=== PATIENT | male | born 1995 | race Caucasian/White ===

== ENCOUNTER 2018-03-15 23:32 | Emergency (ER) | payer SELFPAY ==
[2018-03-15 23:33] VITALS: BP 146/89
[2018-03-15] MEDS ORDERED: ALBUTEROL/IPRATROPIUM 2.5MG/0.5MG, 3 ML ONE (23:41)
[2018-03-16] MEDS ORDERED: ALBUTEROL/IPRATROPIUM 2.5MG/0.5MG, 3 ML NEB ONE
== END 2018-03-16 00:47 | disposition home or self-care (01) ==
LOC: ED 03-16 00:21
DX: J30.2 Other seasonal allergic rhinitis (principal); R05 Cough
CPT/HCPCS: 71045; 94640; 99283; J7620

== ENCOUNTER 2019-09-30 23:09 | Emergency (ER) | payer OTHER ==
[~2019-09-30] VITALS: Ht 190.5 cm; Wt 135.5 kg
--- NOTE | 2019-10-01 | NUR ---
THIS IS A 24 YO MALE COMING IN FOR "MY CHEST FEELS TIGHT TODAY" X TODAY. DENIES COUGH. HX OF ASTHMA. DENIES CHEST PAIN/RECENT TRAVEL. PATIENT STATES INCREASED WORK OF BREATHING, LUNG SOUNDS ARE DIMINISHED THROUGHOUT, NO WHEEZES AUSCULTATED. PATIENT SPEAKING IN FULL SENTENCES, EVEN AND UNLABORED RESPIRATIONS, SPO2 AT 97% ON RA. ALL MONITORING IN PLACE, SINUS RHYTHM ON MONITOR. CALL LIGHT IN REACH. XRAY TO ROOM
[2019-10-01 00:49] VITALS: BP 133/67
--- NOTE | 2019-10-01 01:18 | NUR ---
Break RN: re-evaluation done. patient disvcharged with instruction. verbalized understanding.
== END 2019-10-01 01:19 | disposition home or self-care (01) ==
LOC: ED 10-01 00:45
DX: R07.89 Other chest pain (principal); J45.909 Unspecified asthma, uncomplicated
CPT/HCPCS: 71045; 93005; 99283

== ENCOUNTER 2021-03-14 19:32 | Emergency (ER) | payer OTHER ==
[~2021-03-14] VITALS: Ht 190.5 cm; Wt 136.4 kg
[2021-03-14] MEDS ORDERED: PROPOFOL 10 MG/ML, 20ML ONE (20:44)
[2021-03-14] MEDS ORDERED: ONDANSETRON 2MG/ML, 2ML ONE (20:44)
[2021-03-14] MEDS ORDERED: KETAMINE 100 MG/ML, 5ML IV ONE (21:00)
[2021-03-14] MEDS ORDERED: SODIUM CHLORIDE FLUSH 10ML SYR IVF ONE (21:00)
[2021-03-14] MEDS ORDERED: ONDANSETRON 2MG/ML, 2ML IVPush ONE (21:00)
[2021-03-14] MEDS ORDERED: PROPOFOL 10 MG/ML, 20ML IVPush ONE ×2 (21:00→22:00)
[2021-03-14] MEDS ORDERED: KETAMINE 10 MG/ML, 20ML ONE (21:19)
--- NOTE | 2021-03-14 21:19 | NUR ---
pt educated on procedure by dr zhu and gi doc. pt verbalized understanding and all questions answered. consent signed and added to paper chart. pt attached to monitors spo2, bp, cardiac and endtidal co2. ambu bag, suction and crash cart at bedside.
--- NOTE | 2021-03-14 21:40 | NUR ---
pt tolerated procedure well. pt now recovering from meds. slowing returning to baseline.
[2021-03-14 21:43] VITALS: BP 159/88
[2021-03-14] MEDS ORDERED: KETAMINE 10 MG/ML, 20ML IV ONE (22:00)
--- NOTE | 2021-03-14 22:17 | NUR ---
SEE PAPER CHART FOR INTRAPROCEDURAL NOTES.
--- NOTE | 2021-03-14 22:25 | NUR ---
DR CERVANTES USED 180 OF KETAMINE AND 180 OF PROPRFOL. YUNIEL GARCIA A WASTE WITTNESS FOR REMAINDER OF BOTH DRUGS.
--- NOTE | 2021-03-14 22:43 | NUR ---
PT TOELRATED PO FLUIDS WELL. AMBULATORY WITH A STEADY GAIT. EDUCATED ON DISCHARGE INSTRUCTIONS AND VERBALIZED UNDERSTANDING.
== END 2021-03-14 22:55 | disposition home or self-care (01) ==
LOC: ED 19:42
DX: K22.2 Esophageal obstruction (principal); T18.128A Food in esophagus causing other injury, initial encounter; J45.909 Unspecified asthma, uncomplicated; E66.01 Morbid (severe) obesity due to excess calories; Z68.37 Body mass index [BMI] 37.0-37.9, adult; X58.XXXA Exposure to other specified factors, initial encounter; Y93.89 Activity, other specified; Y92.89 Other specified places as the place of occurrence of the external cause; Y99.8 Other external cause status
CPT/HCPCS: 88305; 99285